=== PATIENT | male | born 1990 | race Two or more races ===

== ENCOUNTER 2017-08-21 10:51 | Emergency (ER) | payer SELFPAY ==
[2017-08-21] MEDS ORDERED: Lidocaine 1% 20 ML MDV INJECT ONE (11:29)
[2017-08-21] MEDS ORDERED: HYDROmorphone 0.5 MG/0.5 ML SYRINGE IM ONE (11:29)
[2017-08-21] MEDS ORDERED: Lidocaine 1% 50 ML MDV INJECT ONE (11:43)
--- NOTE | 2017-08-21 11:43 | EDM.PDOC ---
ED HPI GENERAL MEDICAL PROBLEM - General Chief Complaint: Skin Complaint Stated Complaint: BOIL IN GROIN AREA Time Seen by Provider: 08/21/17 11:22 Source of Information: Reports: Patient, Significant Other History Limitations: Reports: No Limitations - History of Present Illness INITIAL COMMENTS - FREE TEXT/NARRATIVE: 27-year-old male presents for evaluation and treatment of a boil to the right groin. Reports he first developed over the weekend and has progressively worsened. Reports that it is painful. He is unsure if it is draining. He states she's never had anything like this before. Never been told of any MRSA history. He denies any fevers, chills, nausea or vomiting. His girlfriend is present feels there is also an area starting on his left thigh there is groin as well, not as significant. He has been using ice to the area and has been attempting to open it but has been unsuccessful. Right Groin Pain Score (Numeric/FACES): 8 - Related Data Allergies Allergy/AdvReac Type Severity Reaction Status Date / Time No Known Allergies Allergy Unverified 08/21/17 10:57 Home Meds: Home Meds Acetaminophen/oxyCODONE [Percocet 325-5 MG] 1 each PO Q4HR PRN #15 tab 08/21/17 [Rx] Cephalexin 500 mg PO Q8HR #30 tablet 08/21/17 [Rx] Doxycycline [Vibramycin] 100 mg PO BID #20 cap 08/21/17 [Rx] Past Medical History - Past Health History Medical/Surgical History: Denies Medical/Surgical History Musculoskeletal History: Reports: Fracture - Past Surgical History Musculoskeletal Surgical History: Reports: Other (See Below) Other Musculoskeletal Surgeries/Procedures:: surgery to right ring finger Social & Family History - Family History Family Medical History: Noncontributory - Tobacco Use Smoking Status *Q: Former Smoker Used Tobacco, but Quit: Yes Month/Year Tobacco Last Used: 07/18 Tobacco Use Comment: pt chews 1/2 per day - Caffeine Use Caffeine Use: Reports: Coffee, Energy Drinks - Recreational Drug Use Recreational Drug Use: No ED ROS GENERAL - Review of Systems Review Of Systems: See Below Constitutional: Denies: Fever, Chills GI/Abdominal: Denies: Nausea, Vomiting Skin: Reports: Lumps (right groin) ED EXAM, SKIN/RASH Exam: See Below Exam Limited By: No Limitations General Appearance: Alert, WD/WN, No Apparent Distress Respiratory/Chest: No Respiratory Distress Neurological: Alert, Oriented, Normal Cognition Psychiatric: Normal Affect, Normal Mood Skin: Warm, Dry, Normal Color, Erythema (right groin approximately 12cm x 9 cm with a central abscess about 2.5cm in diameter, tender to palpation, fluctuant) Location, Skin: Lower Extremity, Right (right proximal, medial thigh and right groin) Characteristics: Erythematous Associated features: Warmth, Tenderness. No: Weeping ED SKIN PROCEDURES - I&D Site: right thigh Skin Prep: Chlorhexidine (Hibiciens) Local Anesthesia: Lidocaine: 1% Plain Local Anesthetic Volume: 1cc Area Incised With: 11 Blade Drainage: Purulent, Bloody, Moderate Amount Probed to Break Up Loculations: Yes Packed With: 1/2 in. Iodoform (2 inches) Complications: No Course - Vital Signs Last Recorded V/S: Last Vital Signs Temp 98.3 F 08/21/17 12:43 Pulse 56 L 08/21/17 12:43 Resp 16 08/21/17 12:43 BP 112/68 08/21/17 12:43 Pulse Ox 96 08/21/17 12:43 - Orders/Labs/Meds Orders: Active Orders 24 hr Category Date Time Status CULTURE ANAEROBIC + SMEAR [RM] Stat Lab 08/21/17 12:15 Ordered Meds: Medications Discontinued Medications Generic Name Dose Route Start Last Admin Trade Name Gabrielq PRN Reason Stop Dose Admin Hydromorphone HCl 1 mg 08/21/17 11:29 08/21/17 11:38 Dilaudid IM 08/21/17 11:30 1 mg ONETIME ONE Administration Lidocaine HCl 20 ml 08/21/17 11:29 Xylocaine 1% INJECT 08/21/17 11:30 ONETIME ONE Lidocaine HCl 50 ml 08/21/17 11:43 08/21/17 12:01 Xylocaine 1% INJECT 08/21/17 11:44 50 ml ONETIME ONE Administration - Re-Assessments/Exams Free Text/Narrative Re-Assessment/Exam: 08/21/17 12:27 I&D preformed. Consent obtained. Mild to moderate amount of purulent, bloody material extracted. Patient tolerated the procedure well. No complications. Abscess probed to break up loculations. Packed with about 2 inches of 1/2 iodorform. ' Discharge instructions as documented. Departure - Departure Time of Disposition: 12:27 Disposition: Home, Self-Care 01 Condition: Fair Clinical Impression: Abscess - Discharge Information Prescriptions: Acetaminophen/oxyCODONE [Percocet 325-5 MG] 1 each PO Q4HR PRN #15 tab PRN Reason: Pain Cephalexin 500 mg PO Q8HR #30 tablet Doxycycline [Vibramycin] 100 mg PO BID #20 cap Instructions: Skin Abscess, Dental Abscess Referrals: PCP,None [Primary Care Provider] - Kell Martin MD [Physician] - Forms: ED Department Discharge Additional Instructions: Recommend using a warm compress to the area 3-4 times a day for 10-15 minutes. If the packing falls out that is okay. wash the area with gentle soap and water twice a day. Doxycycline 1 Twice a day for 10 days. This medication can cause photosensitivity. Recommend avoiding the sun and if you are in the stomach sure you wear sunscreen. Keflex 1 Twice a day for 10 days. Recommend taking your antibiotics with food. He may also start your order probiotic to reduce side effects of upset stomach, nausea and diarrhea. Follow-up in the clinic on Friday or Friday this coming week. Recommend Dr. Martin or Belkis Barrios. Call [phone] to schedule with one of these providers. [id number] Tylenol or Motrin as needed for pain relief. For pain not related by Tylenol or motrin may take Percocet 1 or 2 tabs every 4-[address] machinery within 12 hours of taking Percocet. Percocet is habit-forming, take as few these as needed to control your pain. Do not take more than 3200 mg of ibuprofen from all sources in 1 day. Do not take more than 4 g of Tylenol from all sources in 1 day. Please return to the ER for symptoms change or worsen.. - My Orders Last 24 Hours: My Active Orders 08/21/17 12:15 CULTURE ANAEROBIC + SMEAR [RM] Stat - Assessment/Plan Last 24 Hours: My Active Orders 08/21/17 12:15 CULTURE ANAEROBIC + SMEAR [RM] Stat
[2017-08-21 12:53] VITALS: BP 112/68
== END 2017-08-21 12:43 | disposition home or self-care (01) ==
LOC: JD.ED 10:51
DX: L02.415 Cutaneous abscess of right lower limb (principal); Z87.891 Personal history of nicotine dependence
CPT/HCPCS: 10060; 87075; 87205; 96372; 99283; J1170

== ENCOUNTER 2018-03-14 14:08 | Emergency (ER) | payer SELFPAY ==
[2018-03-14 14:17] VITALS: BP 130/72
[2018-03-14] MEDS ORDERED: Lidocaine 1% 20 ML MDV INJECT ONE (14:30)
[2018-03-14] MEDS ORDERED: Lidocaine 1% 10 ML MDV INJECT ONE (14:33)
--- NOTE | 2018-03-14 16:26 | EDM.PDOC ---
<Eli Genao - Last Filed: 03/14/18 20:47> ED HPI GENERAL MEDICAL PROBLEM - General Chief Complaint: Skin Complaint Stated Complaint: ABSCESS NEAR GROIN Time Seen by Provider: 03/14/18 14:10 - Related Data Allergies Allergy/AdvReac Type Severity Reaction Status Date / Time No Known Allergies Allergy Verified 03/14/18 14:17 Home Meds: Home Meds . [No Known Home Meds] 03/14/18 [History] ED SKIN PROCEDURES - I&D Site: Right upper medial thigh Skin Prep: Chlorhexidine (Hibiciens), Saline, Sterile Drape Local Anesthesia: Lidocaine: 1% Plain Local Anesthetic Volume: 2cc Area Incised With: 11 Blade, Scissors, Needle Drainage: Bloody Sterile Dressing: Adhesive Dressing Progress/Comments: A 18 gauge needle was used to aspirate the lesion, and only blood was aspirated. An 11 blade scalpel was then used to open the lesion, and the lesion was found to be a large skin tag and not an abscess. We then decided to remove the tissue with a sterile scissors and closed the wound with 2 interrupted sutures, 4-0 ethilon. The wound was then covered with bacitracin and a bandage. The patient tolerated the procedure well. No significant blood loss. Course - Vital Signs Last Recorded V/S: Last Vital Signs Temp 98.9 F 03/14/18 14:13 Pulse 75 03/14/18 14:13 Resp 16 03/14/18 14:13 BP 130/72 03/14/18 14:13 Pulse Ox 98 03/14/18 14:13 - Orders/Labs/Meds Meds: Medications Discontinued Medications Generic Name Dose Route Start Last Admin Trade Name Imelda PRN Reason Stop Dose Admin Lidocaine HCl 20 ml 03/14/18 14:30 03/14/18 16:23 Xylocaine 1% INJECT 03/14/18 14:31 Not Given ONETIME ONE Lidocaine HCl 10 ml 03/14/18 14:33 03/14/18 14:39 Xylocaine 1% INJECT 03/14/18 14:34 10 ml ONETIME ONE Administration Departure - Departure Disposition: Home, Self-Care 01 Clinical Impression: Skin tag - Discharge Information Instructions: Skin Tag, Adult Referrals: PCP,None [Primary Care Provider] - Fridrich,Keila F, PA-C [Physician [employer]] - Forms: ED Department Discharge Additional Instructions: Wash the wound with gentle soap and water twice a day. Apply a topical antibacterial such as Neosporin or bacitracin to the wound twice a day. Keep the wound covered. Have the sutures removed in [address] [facility] located on the [facility] side of the [facility] is open 8 AM to 5 PM Friday through Friday and will remove the sutures for free. Call [phone] schedule the provider there. May take [id number] Tylenol or Motrin as needed for discomfort. Please return to the ER if your symptoms change or worsen. <Denisha Nelson - Last Filed: 03/20/18 14:43> ED HPI GENERAL MEDICAL PROBLEM - General Source of Information: Reports: Patient History Limitations: Reports: No Limitations - History of Present Illness INITIAL COMMENTS - FREE TEXT/NARRATIVE: 27 year old male presents for evaluation and treatment of an abscess to the right, medial, proximal thigh. Reports the area first appeared about 3 days ago. Reports it is painful. States he attempted to I&D the area at home with a needle and was only able to express blood. No fevers, chills, nausea or vomiting. Patient was seen by myself August 2017 for an abscess. I&D was done and he did very well. No history of MRSA. No history of diabetes. Right Upper Thigh Pain Score (Numeric/FACES): 8 Past Medical History - Past Health History Medical/Surgical History: Denies Medical/Surgical History Musculoskeletal History: Reports: Fracture - Past Surgical History Musculoskeletal Surgical History: Reports: Other (See Below) Other Musculoskeletal Surgeries/Procedures:: surgery to right ring finger Social & Family History - Family History Family Medical History: Noncontributory - Tobacco Use Smoking Status *Q: Former Smoker Years of Tobacco use: 4 Used Tobacco, but Quit: Yes Month/Year Tobacco Last Used: 2017 - Caffeine Use Caffeine Use: Reports: Energy Drinks - Recreational Drug Use Recreational Drug Use: No ED ROS GENERAL - Review of Systems Review Of Systems: See Below Constitutional: Denies: Fever, Chills GI/Abdominal: Denies: Nausea, Vomiting Skin: Reports: Lumps (right, medial, proximal thigh, painful lump). Denies: Erythema ED EXAM, SKIN/RASH Exam: See Below Exam Limited By: No Limitations General Appearance: Alert, WD/WN, No Apparent Distress Respiratory/Chest: No Respiratory Distress, Lungs Clear, Normal Breath Sounds Cardiovascular: Normal Peripheral Pulses, Regular Rate, Rhythm, No Murmur Neurological: Alert, Oriented, Normal Cognition Psychiatric: Normal Affect, Normal Mood Skin: Warm, Dry, Normal Color, Other (approximately 1cm in diameter fluctuent lump to te right proximal medial thigh, no overlying or surrounding erythema) Location, Skin: Lower Extremity, Right Associated features: No: Warmth, Tenderness, Induration Course - Re-Assessments/Exams Free Text/Narrative Re-Assessment/Exam: 03/14/18 16:22 Initially thought to be an abscess; I&D started. Once started obvious this is a large skin tag. Skin tag removed and 2 sutures placed. Patient tolerated well. No complications. Procedure preformed by ITZ Torres while I supervised. Discharge instructions as documented. Departure - Departure Time of Disposition: 16:22 Condition: Fair - Discharge Information *PRESCRIPTION DRUG MONITORING PROGRAM REVIEWED*: No *COPY OF PRESCRIPTION DRUG MONITORING REPORT IN PATIENT OLIVIA: No
== END 2018-03-14 16:30 | disposition home or self-care (01) ==
LOC: JD.ED 14:08
DX: L02.415 Cutaneous abscess of right lower limb (principal); Z87.891 Personal history of nicotine dependence
CPT/HCPCS: 10060; 87070; 87077; 87186; 99283-25